=== PATIENT | female | born 2000 | race Caucasian/White ===

== ENCOUNTER 2021-12-01 21:35 | Emergency (ER) | payer SELFPAY ==
--- NOTE | ~2021-12-01 | CT_ITS ---
EXAMINATION: CT abdomen pelvis w con EXAM DATE: 12/01/2021 23:37 INDICATION: Lower abd pain X 4 Days, vomiting. Bilateral flank pain. TECHNIQUE: Spiral CT of the abdomen and pelvis was performed following intravenous injection of 100 m L Omnipaque 350. Axial, coronal and sagittal images of the abdomen and pelvis were reviewed. The do se-length product (DLP) for this examination was 539.51 mGy-cm. The exposure was tailored according to patient size (auto mA exposure control), and iterative reconstruction (ASIR) was used as additiona l dose reduction technique. There is no prior study for comparison. FINDINGS: The liver, spleen, adrenal glands and pancreas are unremarkable. Gallbladder is unremarkab le. No biliary obstruction. Portal and splenic veins are patent. Kidneys enhance symmetrically. T here is no hydronephrosis. The is retroverted uterus and ovaries are unremarkable, no adnexal mass. The bladder is unremarkable. There is no retroperitoneal or pelvic lymphadenopathy. The appendix is normal. The stomach and small bowel are unremarkable. There is expected amount of c olonic stool. No free intraperitoneal gas. The heart is normal in size. There are no pericardial or pleural effusions. The lung bases are unremarkable. There are no significant osseous abnormalit ies identified. IMPRESSION: 1. No acute intra-abdominal findings. Reviewed, dictated and finalized at location A.
[2021-12-01 21:40] VITALS: BP 125/78; PULSE 84; RESP 18; TEMP 36.8; O2SAT 100
--- NOTE | 2021-12-01 22:16 | ED.ABDPAIN ---
HPI - Abdominal Pain General Chief Complaint: Abdominal Pain Stated Complaint: stomach pain x 5 days. Time Seen by Provider: 12/01/21 21:39 Source: patient Mode of arrival: ambulatory Limitations: no limitations History of Present Illness HPI narrative: This is a 21-year-old female that presents to the emergency department for abdominal pain. Ongoing over the last 4 days. Associated with nausea and vomiting. Denies fever, dysuria, or diarrhea. Related Data Allergies Allergy/AdvReac Type Severity Reaction Status Date / Time No Known Allergies Allergy Verified 12/01/21 21:58 Review of Systems Review of Systems: CONSTITUTIONAL: Denies fever GASTROINTESTINAL: Reports abdominal pain, nausea, vomiting. Denies diarrhea. GENITOURINARY: Denies dysuria All systems reviewed & are unremarkable except as noted in HPI and below PMFSH Past Medical History Medical History (Updated 12/02/21 @ 00:52 by Smitha Marroquin PA-C) History of anxiety Social History Social History (Updated 12/01/21 @ 22:17 by Smitha Marroquin PA-C) Smoking status: Never smoker Substance use: never Exam Narrative: GENERAL: Well-appearing, well-nourished, and in no acute distress. HEAD: Normocephalic, atraumatic. EYES: EOMI. CHEST: Clear to auscultation. No respiratory distress. No wheezes rales or rhonchi HEART: Regular rate and rhythm. No murmur heard. Normal peripheral pulses. ABDOMEN: Soft, nondistended, normal active bowel sounds. Mild tenderness to palpation throughout the abdomen, without guarding. No CVA tenderness EXTREMITIES: Normal range of motion. No edema. SKIN: Warm, dry, no rash. NEURO: No focal deficits. Alert and oriented x3. PSYCH: Normal mood and affect Course Vital Signs Vital signs: Vital Signs Temperature 98.2 F 12/01/21 21:40 Pulse Rate 84 12/01/21 21:40 Respiratory Rate 18 12/01/21 21:40 Blood Pressure 125/78 12/01/21 21:40 Pulse Oximetry 100 12/01/21 21:40 Temperature 98.2 F 12/01/21 21:40 Pulse Rate 67 12/02/21 00:35 Respiratory Rate 16 12/02/21 00:35 Blood Pressure 126/68 12/02/21 00:35 Pulse Oximetry 100 12/02/21 00:35 MDM - Abdominal Pain MDM Narrative Medical decision making narrative: Patient presents to the ER for abdominal pain present over the last couple of days. She is afebrile and nontoxic appearing. Her vitals are stable. CBC and metabolic panel without concerning findings. UA without evidence of infection. Does show some dehydration. Patient hydrated with 2L IV fluids in the ED. COVID and influenza screens are negative. Bedside test is negative. CT scan of the abdomen and pelvis without acute findings. Patient and family updated on case findings. Able to tolerate p.o. challenge. She is stable and felt appropriate for further outpatient evaluation. She was given warnings to return to the ER Lab Data Attestation: I reviewed the patient's lab results. Result diagrams: 12/01/21 22:15 12/01/21 22:15 Labs: Lab Results 12/01/21 12/01/21 12/01/21 Range/Units 22:15 22:15 22:17 WBC 5.8 (4.5-10.0) K/mm3 RBC 4.59 (4.2-5.4) M/mm3 Hgb 13.0 (12.0-15.0) g/dL Hct 40.1 (37.0-47.0) % MCV 87.4 (80-100) fl MCH 28.3 (26-34) pg MCHC 32.4 (32-36) g/dl RDW 11.9 (11.5-14.5) % Plt Count 274 (150-375) k/mm3 MPV 10.0 (7.4-10.4) fl Immature Gran % (Auto) 0.2 (0-0.5) % Neut % (Auto) 52.1 (45.5-73.1) % Lymph % (Auto) 38.8 (18.3-44.2) % [place] % (Auto) 8.1 (2.6-8.5) % Eos % (Auto) 0.5 (0-4.4) % Baso % (Auto) 0.3 (0.2-1.2) % Lymph # (Auto) 2.25 (0.9-3.2) K/mm3 Charlotte # (Auto) 0.5 (0.1-0.6) K/mm3 Eos # (Auto) 0.0 (0-0.3) K/mm3 Baso # (Auto) 0.0 (0.0-0.1) K/mm3 Abs Immat Gran (auto) 0.01 (0.00-0.031) K/mm3 Absolute Neuts (auto) 3.0 (1.3-6.7) K/mm3 Absolute Nucleated RBC 0.0 (0.0-0.012) K/mm3 Nucleated RBC % 0.0 (0.0-0.2) % [place]
[2021-12-01 22:31] LABS: Basophils Percent Auto 0.3 % (0.2-1.2); Eosinophils Percent Auto 0.5 % (0-4.4); Hematocrit 40.1 % (37.0-47.0); Immature Granulocyte Absolute 0.01 K/mm3 (0.00-0.031); Immature Granulocyte Percent A 0.2 % (0-0.5); Lymphocytes Absolute Auto 2.25 K/mm3 (0.9-3.2); Lymphocytes Percent Auto 38.8 % (18.3-44.2); Mean Corpuscular HGB Conc 32.4 g/dl (32-36); Mean Corpuscular Hemoglobin 28.3 pg (26-34); Mean Corpuscular Volume 87.4 fl (80-100); Monocytes Absolute Auto 0.5 K/mm3 (0.1-0.6); Monocytes Percent Auto 8.1 % (2.6-8.5); Neutrophils Percent Auto 52.1 % (45.5-73.1); Platelet Count Result 274 k/mm3 (150-375); Red Blood Count 4.59 M/mm3 (4.2-5.4); Red Cell Distribution Width 11.9 % (11.5-14.5); White Blood Count 5.8 K/mm3 (4.5-10.0)
[2021-12-01 22:32] LABS: Appearance Urine Clear (Clear); Bilirubin Urine 2+ (Negative); Blood Urine Negative (Negative); Color Urine Yellow (Yellow); Glucose Urine UA Negative (Negative); Ketones Urine 3+ mg/dL (Negative); Leukocyte Esterase Ur Negative LEU/UL (Negative); Nitrate Urine Negative (Negative); Protein Urine Trace mg/dL (Negative); Specific Grav Ur >= 1.030 (1.001-1.035)
[2021-12-01 22:37] LABS: Bacteria Urine Trace /hpf; Mucus Urine Moderate /lpf; Squamous Epithelial Cell Urine Many /hpf (Few)
[2021-12-01 22:44] LABS: Add Urine Microscopic? YES
[2021-12-01 23:06] LABS: Alanine Aminotransferase 15 U/L (4-35); Albumin Level 4.5 g/dL (3.5-5.1); Alkaline Phosphatase 73 U/L (38-126); Anion Gap 9 mmol/L (8-16); Aspartate Amino Transferase 33 U/L (14-36); Bilirubin,Total 0.8 mg/dL (0.2-1.3); Blood Urea Nitrogen 17 mg/dL (7-17); Calcium 8.7 mg/dL (8.4-10.2); Carbon Dioxide 27 mmol/L (22-30); Chloride 103 mmol/L (98-107); Estimated Glomerular Filt Rate > 60; Glucose 88 mg/dL (65-110); Lipase 129 U/L (23-300); Potassium 3.7 mmol/L (3.4-5.0); Sodium 139 mmol/L (137-145)
[2021-12-01] MEDS: SODIUM CHLORIDE 0.9% IV 1,000 ML 999 ML IV CONT (23:17)
[2021-12-01] MEDS: ONDANSETRON INJ 4 MG/2 ML VIAL IV PUSH (23:17)
[2021-12-01 23:46] LABS: Influenza A QL RT-PCR Negative (Negative); Influenza B QL RT-PCR Negative (Negative); SARS-CoV-2 RNA PCR Negative
[2021-12-02 00:35] VITALS: BP 126/68; PULSE 67; RESP 16; O2SAT 100
[2021-12-02] MEDS: SODIUM CHLORIDE 0.9% IV 1,000 ML 999 ML IV CONT (00:35)
[2021-12-02 01:47] VITALS: BP 116/69; PULSE 57; RESP 18; O2SAT 99
== END 2021-12-02 02:18 | disposition home or self-care (01) ==
PROVIDERS: Physician Assistant; Emergency Provider Emergency Medicine; PCP Internal Medicine
DX: R10.84 Generalized abdominal pain (principal); Z20.822 Contact with and (suspected) exposure to COVID-19
CPT/HCPCS: 36415; 74177; 80053; 81001; 81025; 83690; 85025; 87086; 87502; 96361; 96365; 96375; 99284; C9803; J0131; J2405; J7030; Q9967; U0003; U0005

== ENCOUNTER 2023-08-23 23:29 | Emergency (ER) | payer BC, SELFPAY ==
--- NOTE | ~2023-08-23 | CT_ITS ---
Non-contrast Head CT History: Head injury Technique: Axial non-contrast imaging of the brain was performed. Dose reduction technique was used on this scan by utilizing automated exposure control and iterative reconstruction technique. The dose -length product (DLP) was 605.33 mGy-cm. Findings: There is no evidence of intracranial hemorrhage, mass lesion, or acute infarct. Brain par enchyma appears normal. The ventricles and subarachnoid spaces are normal in size. The calvarium ap pears normal. The visualized paranasal sinuses and mastoid air cells are clear. Impression: No significant abnormality seen. Reviewed, dictated and finalized at [facility]. ECT MANAGEMENT INSTRUCTOR Impression: No significant abnormality seen.
[2023-08-23 23:39] VITALS: BP 120/75; PULSE 83; RESP 16; TEMP 36.5; O2SAT 100
[2023-08-24] VITALS (9 sets, daily range): BP systolic 120–123; BP diastolic 70–84; PULSE 72–77; RESP 14–15; O2SAT 96–100
--- NOTE | 2023-08-24 01:41 | ED.HEATRA ---
HPI - Head Injury General Chief complaint: Head Injury Stated complaint: head injury 3 days ago Time Seen by Provider: 08/24/23 01:28 Source: patient Mode of arrival: ambulatory Limitations: no limitations History of Present Illness HPI Narrative: This is a 23 year old female that presents to the ER for a head injury 3 days ago. Reports she was building a shelving unit and one of the shelves fell out and hit her in the head. She did not lose consciousness. Reports since she has had headache and dizziness. Denies vision changes, vomiting, numbness or weakness. Related Data Allergies Allergy/AdvReac Type Severity Reaction Status Date / Time No Known Allergies Allergy Verified 08/03/23 10:58 Review of Systems Review of Systems: CONSTITUTIONAL: Denies fever EYES: Denies visual changes GASTROINTESTINAL: Denies vomiting NEUROLOGIC: Reports headache. Denies numbness, or weakness. All systems reviewed & are unremarkable except as noted in HPI and below PMFSH Past Medical History Medical History (Updated 08/24/23 @ 04:56 by Smitha Marroquin PA-C) Anxiety Depression Family History Family History Father Hypertension Mother Hypertension Social History Social History Smoking status: Never smoker Substance use: never Exam Narrative: GENERAL: Well-appearing, well-nourished, and in no acute distress. HEAD: Normocephalic, atraumatic. EYES: PERRLA and EOMI. ENT: Nares clear, no rhinorrhea or epistaxis. Mucous membranes moist. Oropharynx without tonsillar hypertrophy exudate or other lesions. Bilateral TMs pearly marquis non-bulging NECK: Supple. No adenopathy or masses. No midline spinal tenderness CHEST: Clear to auscultation. No respiratory distress. No wheezes rales or rhonchi HEART: Regular rate and rhythm. No murmur heard. Normal peripheral pulses. EXTREMITIES: Normal range of motion. No edema. Strength equal in bilateral upper and lower extremities (5/5) SKIN: Warm, dry, no rash. NEURO: No focal deficits. Alert and oriented x3. CN II-XII grossly intact. Normal heel to baez PSYCH: Normal mood and affect Course Course Emergency Course: patient updated on workup and agrees with plan of care Vital Signs Vital signs: Vital Signs Temperature 97.7 F 08/23/23 23:39 Pulse Rate 83 08/23/23 23:39 Respiratory Rate 16 08/23/23 23:39 Blood Pressure 120/75 08/23/23 23:39 Pulse Oximetry 100 08/23/23 23:39 Oxygen Delivery Room Air 08/23/23 23:39 Temperature 97.7 F 08/23/23 23:39 Pulse Rate 77 08/24/23 02:01 Respiratory Rate 15 08/24/23 02:01 Blood Pressure 123/73 08/24/23 02:01 Pulse Oximetry 98 08/24/23 02:30 Oxygen Delivery Room Air 08/24/23 01:45 MDM - Head Injury MDM Narrative Medical decision making narrative: patient presents to the emergency department after head injury with headaches and dizziness. She is neurologically intact. Her vitals are stable. CT scan of the brain is without acute findings. She was instructed on further care of concussion. She is to follow up with her primary provider. She was given warnings to return to the ER Differential Diagnosis Differential diagnosis: Likely concussion without loss of consciousness, subarachnoid hematoma and subdural hematoma Imaging Data Radiologist's impression: CT brain: No intracranial hemorrhage, mass effect or edema. No skull fracture Critical Care Time Critical Care Time Critical Care Time: No Discharge Plan Discharge Clinical Impression: Concussion Qualifiers: Encounter type: initial encounter Loss of consciousness presence/duration: without LOC Qualified Code(s): S06.0X0A - Concussion without loss of consciousness, initial encounter Patient Disposition: Home, Self-Care Condition: Stable Instructions: Concussion (ED) Additional Instructions: Retur
== END 2023-08-24 05:14 | disposition home or self-care (01) ==
PROVIDERS: Emergency Provider Physician Assistant; PCP Family Medicine
DX: S06.0X0A Concussion without loss of consciousness, initial encounter (principal)
CPT/HCPCS: 70450; 99284

== ENCOUNTER 2024-07-19 09:29 | Outpatient (CLI) | payer OTHER, SELFPAY ==
[2024-07-19 10:24] LABS: Influenza A QL RT-PCR Negative (Negative); Influenza B QL RT-PCR Negative (Negative); RSV RNA, RT-PCR Negative (Negative); SARS-CoV-2 RNA PCR Negative (Negative)
== END 2024-07-19 09:30 | disposition home or self-care (01) ==
LOC: ANHLAB 09:31
PROVIDERS: PCP Family Medicine; Visit Provider Student in an Organized Health Care Education/Training Program
DX: R09.89 Other specified symptoms and signs involving the circulatory and respiratory systems (principal)
CPT/HCPCS: 87637

== ENCOUNTER 2025-05-16 02:42 | Day surgery (SDC) | payer OTHER, SELFPAY ==
[2025-05-06 12:54] VITALS: BMI 35.4
--- NOTE | 2025-05-06 13:00 | PC.NURSE ---
[facility] has started construction of its new state of the art ER which will open Spring 2026. With this, we anticipate parking may be a challenge for some our surgical patients and families. Parking spaces are limited but are available for all Surgical, obstetrics, and ER patients sharing this lot. If you arrive and find you are having a hard time finding a parking space, please note that we understand the challenges, please drive around the hospital and park near Hospital Entrance 1. When you enter this entrance, you can ask a volunteer to direct or take you back to the surgical waiting area to check in. We appreciate everyone?s understanding of these expected challenges while we build for your future. Report to the Outpatient Waiting Room, entrance under the green pavilion located off [address], at time _0715_ on date _[id number]_. Planned Procedure Time: _0915_.? Time changes happen often and if your time is changed the preop area will call you the afternoon before. - You and your visitor will be asked to self-screen and do not enter if you have any COVID symptoms. Please call surgeon if you need to reschedule. - A mask is optional within the hospital at this time. Patients may have clear liquids (water, carbonated beverages, clear teas, apple juice) until 3 hours prior to surgery with a maximum of 20 ounces. - No food from midnight until time of surgery and no smoking, or chewing tobacco (or any form of nicotine). No chewing gum, candy or mints. Take only the following medications with a SIP of water on the morning of surgery: ___Fluoxetine and Bupropion___ DO NOT STOP ANY OF YOUR OTHER PRESCRIPTION MEDICATIONS PRIOR TO SURGERY EXCEPT THE FOLLOWING Hold all vitamins and supplements for 3 days per anesthesiologist. Medications to discontinue per physician Date to take last dose Please no make-up, nail vincentian, hairspray, perfume, deodorant, or body powder the day of surgery.? No jewelry (including any body piercings) or valuables the day of surgery, leave them at home.? Please take a shower or bath the night before, or the morning of, surgery with an antibacterial soap.? Wear comfortable, loose fitting clothing.? - Jewelry must be removed prior to entering the operating room.? Rings and piercings that are not removed may be cut off. - The hospital will not accept responsibility for valuables.? - Please leave all valuables, including medications, at home the day of surgery. If you are going home after surgery, a licensed parts driver must drive you home.? - NO public transportation without another adult if you receive anesthesia. - We recommend that an adult stay with you for 24 hours following discharge. - We also recommend that you do not drive, make important decision, drink alcoholic beverages, or take any drugs that were not prescribed by your health care provider for at least 24 hours after your discharge time. Follow any additional instructions given to you from your surgeon. Telephone instructions given to __Tunde___and asked if any additional questions and then verbalized understanding. Patient advised to call surgeon office or pre surgery nurse liaison [phone] if any additional questions.
--- NOTE | 2025-05-12 14:04 | P.HP_ITS ---
H&P: HPI History of Present Illness Date/Time: 05/12/25 14:04 Chief Complaint: Excessive heavy bleeding Narrative: A 25-year-old female 0 with excessive heavy bleeding. She appears to have polycystic ovaries is a markedly thickened endometrium she will undergo hysteroscopy dilatation curettage. Risks and benefits reviewed including but not exclusive of , aspiration pneumonia, bleeding, transfusion, perforation injury to bowel, bladder, ureters, or other internal organs with the need for open laparotomy. She received the ACOG handout entitled distress dilatation curettage and hysteroscopy respectively. She had all questions answered. She asked to proceed. Review of Systems Review of Systems: CONSTITUTIONAL: Denies fever EYES: Denies visual changes GASTROINTESTINAL: Denies vomiting NEUROLOGIC: Reports headache. Denies numbness, or weakness. All systems reviewed & are unremarkable except as noted in HPI and below PMFSH Past Medical History Medical History Right shoulder pain Anxiety Depression Family History Family History Father Hypertension Mother Hypertension Social History Social History Smoking status: Never smoker Substance use: never Living arrangements: with family Spiritual care concerns: No Meds Home Medications and Allergies Home Medications ?Medication ?Instructions ?Recorded ?Confirmed ?Type fluoxetine 10 mg capsule 10 mg PO DAILY #90 caps 11/0 12/0505/06/25 Rx bupropion HCl 150 mg 24 hr tablet, 150 mg PO QAM #90 t abs 01/20/25 05/06/25 Rx extended release multivit,[id number]-wqte-ZY-lut-#179herbal 1 tablet PO DA ERNESTINA 05/06/25 05/06/25 History 13.5 mg-200 mcg-250 mcg tablet Allergies Allergy/AdvReac Type Severity Reaction Status Date / Time No Known Allergies Allergy Verified 05/06/25 12:52 Exam Const: General: cooperative, healthy appearing, comfortable and obese Orientation/consciousness: oriented to person, oriented to place and oriented to time HENMT: Head: normal to inspection Resp: Effort & Inspection: normal respiratory effort Cardio: Rate: regular rate Rhythm: regular rhythm Heart sounds: S1 normal heart sound present and S2 normal heart sound present GI: Inspection: normal to inspection : External Female Exam: normal external appearance Speculum Exam - Vagina: normal appearance of the vagina Speculum Exam - Cervix: normal appearance of the cervix Bimanual exam- vagina & uterus: boggy Bimanual Exam- Adnexa, other: normal adnexae Assessment and Plan Assessment and plan (1) Menorrhagia: Code(s): N92.0 - Excessive and frequent menstruation with regular cycle Status: Acute Plan Proceed with hysteroscopy/dilatation curettage
--- NOTE | 2025-05-16 06:35 | WPDHPUPDATE1 ---
History and Physical Update Update Date/Time: 05/16/25 06:35 History and Physical has been reviewed, including an updated exam of the patient. There are NO changes in the patient's condition. Risks, benefits, and alternatives have been discussed and questions answered. Patient agrees to proceed with procedure.
[2025-05-16 07:20] VITALS: BP 143/86; PULSE 78; RESP 18; TEMP 36.1; O2SAT 98
[2025-05-16] MEDS: ACETAMINOPHEN 500 MG TABLET 1000 MG PO (07:30)
[2025-05-16] MEDS: LACTATED RINGERS 1,000 ML 30 ML IV CONT (07:35)
[2025-05-16 07:52] LABS: BEDSIDEPREGUCG Negative (Negative)
[2025-05-16] MEDS: SCOPOLAMINE 1 MG PATCH 1 PATCH TRANSDERM (07:52)
--- NOTE | 2025-05-16 08:56 | P.PNAN_ITS ---
Anes - Initial Pre Proc Eval Procedure: Operation Date: 05/16/25 09:15 Proposed Procedures p Hysteroscopy Dilation and Curettage - Andrew Rodgers MD Date/Time: 05/16/25 08:56 Surgeon: Andrew Rodgers MD Pre Op Diagnosis: pco, heavy bleeding Patient Data Age: 25 Gender: F Height: 1.5 m Weight: 84.45 kg Last Vital Signs Temp 36.1 C L 05/16/25 07:20 Pulse 78 05/16/25 07:20 Resp 18 05/16/25 07:20 BP 143/86 H 05/16/25 07:20 Pulse Ox 98 05/16/25 07:20 O2 Del Method Room Air 05/16/25 07:20 Allergies Allergy/AdvReac Type Severity Reaction Status Date / Time No Known Allergies Allergy Verified 05/16/25 07:19 Home Medications ?Medication ?Instructions ?Recorded ?Confirmed ?Type fluoxetine 10 mg capsule 10 mg PO DAILY #90 caps 11/0 12/0505/16/25 Rx bupropion HCl 150 mg 24 hr tablet, 150 mg PO QAM #90 t abs 01/20/25 05/16/25 Rx extended release multivit,ylsufno-iobu-PG-lut-#179herbal 1 tablet PO DA ERNESTINA 05/06/25 05/16/25 History 13.5 mg-200 mcg-250 mcg tablet hydrocodone 5 mg-acetaminophen 325 1 tablet PO Q4H PRN pain #20 tabs 05/16/25 Rx mg tablet Laboratory Tests 05/16/25 07:49 POC Urine HCG, Qual Negative (Negative) HCG: negative Patient hx anesthesia problems: none Family hx anesthesia problems: none Results Review: All pre-operative results and documents have been reviewed as part of the pre- operative evaluation. [facility] Past Medical History Medical History Right shoulder pain Anxiety Depression Family History Family History Father Hypertension Mother Hypertension Social History Social History Smoking status: Never smoker Substance use: never Living arrangements: with family Spiritual care concerns: No Anes - Eval Final PreProcedure Day of Procedure 05/16/25 08:56 Patient weight: obese Lungs: normal air movement Airway: Mallampati scale class II Neurological: alert and oriented Last oral intake: >/= 8 hours ASA classification: II Emergent: no Anesthetic plan: proceed Anesthesia type and monitoring: general GIVS and standard monitoring Results Review: All pre-operative results and documents have been reviewed as part of the pre- operative evaluation. Informed Consent: The patient's anesthetic plan and its attendant risks and benefits were discussed with the patient/family/POA. Questions were solicited and answers provided to the satisfaction of the patient/family/POA.
[2025-05-16] MEDS: LIDOCAINE 1% LOCAL INJ 10 ML VIAL INFILTRATE (09:15)
--- NOTE | 2025-05-16 09:17 | S_PTH ---
PATIENT: Tunde Gray LOC: [facility] U#:[id number] AGE/SX: 25/F ROOM: RE05/16/[address]: Andrew Rodgers MD : 2000 BED: DIS: 05/16/2025 SPEC #: [id number] RECD: 05/16/25 10:12 STATUS: SANTOSH REQ #: [id number] VENU: 05/16/25 09:[address]: Andrew Valdez DEPT: [facility] Surgical RECD BY: Kathy Hernandez ENTERED: 05/16/25 10:12 SP TYPE: Surgical OTHR DR: Leonard SwainMD Tissues: A - Endometrial Curettings Procedures: Hematoxylin and Eosin Stain Gross and Microscopic Level 4
--- NOTE | 2025-05-16 09:19 | W.PM.PROC2 ---
Procedure Note - Detailed Date of Procedure 05/16/25 Pre-op Diagnosis pco, heavy bleeding Post-op Diagnosis Same Procedure Performed Hysteroscopy/dilatation curettage Surgeon Andrew Rodgers MD Anesthesia MAC and Local Indications This is a 25-year-old female polycystic ovaries and excessive heavy bleeding Findings Uterus sounded to 7cm. Thick endometrial tissue was seen but no evidence of polyp or other abnormality Description of Procedure Patient was prepped draped sterile placed in the dorsal position. Under excellent IV sedation weighted speculum placed in posterior fornix vagina. Anterior lip of the cervix grasped with single-tooth tenaculum. 2.5cc 1% xylocaine anesthesia placed at 2, 4, 8, 10:00 a.m. of the cervix. Uterus sounded to 7cm. Serial dilatation with fragmented dilators performed followed by passage of the 5mm visualizing hysteroscope using normal saline as visualizing medium. Thick irregular endometrial tissue was seen. Each fallopian tube os could be seen. The uterus was then scraped over the entire 360? until a good grating sound was heard. The instruments withdrawn. The patient was awakened went recovery in satisfactory condition. All sponge, needle, instrument counts were correct. There were no immediate complications Estimated Blood Loss 5 Drains No Packing No Pathology Yes Complications No immediate complications Condition Stable Disposition PACU
[2025-05-16 09:23] VITALS: BP 119/65; PULSE 78; RESP 18; O2SAT 100
[2025-05-16 09:30] VITALS: BP 134/73; PULSE 77; RESP 16; O2SAT 98
[2025-05-16 10:00] VITALS: BP 134/82; PULSE 67; RESP 16; O2SAT 99
[2025-05-16 10:30] VITALS: BP 127/74; PULSE 58; RESP 16
[2025-05-16 11:00] VITALS: BP 128/80; BP 132/87; PULSE 60; PULSE 61; RESP 16
== END 2025-05-16 11:12 | disposition home or self-care (01) ==
PROVIDERS: PCP Internal Medicine; Visit Provider Obstetrics & Gynecology
PROC: 0U5B8ZZ Destruction of Endometrium, Via Natural or Artificial Opening Endoscopic (ICD-10-PCS; CPT 58563; principal; 2025-05-16 09:15)
DX: N92.0 Excessive and frequent menstruation with regular cycle (principal); E28.2 Polycystic ovarian syndrome; E66.9 Obesity, unspecified; Z68.37 Body mass index [BMI] 37.0-37.9, adult
CPT/HCPCS: 58558; 88305; A9270; J2003; J2250; J2704; J3010; J7120